=== PATIENT | male | born 1980 | race Caucasian/White ===

== ENCOUNTER 2017-01-31 00:38 | Inpatient (IN) | payer OTHER ==
[2017-01-31] VITALS (57 sets, daily range): BP systolic 76–151; BP diastolic 41–131
[~2017-01-31] VITALS: Ht 193 cm; Wt 204.7 kg
--- NOTE | ~2017-01-31 | 2DMMODE ---
[address] [address] 2 D/M-MODE ECHOCARDIOGRAM Name: CHRISTOPHER MANZANO Room #: 242-P ADM IN M.R.#: [id number] Admission: 01/31/17 Attend Phys: Esther Jaramillo Discharge: Date of : 78 Date of Service: 01/31/17 1140 Report #: [id number] THIS REPORT FOR: //name// APPROVED REPORT Study performed: 01/31/2017 09:46:19 EXAM: Comprehensive 2D, Doppler, and color-flow Echocardiogram Patient Location: Bedside Room #: 242 Blood Pressure: 105/62 mmHg HR: 49 bpm Other Information Study Quality: Technically Limited Indications Atrial Fibrillation Cardiomyopathy Chest Pain Echo Enhancing Agent Indication: Endocardial border delineation Agent/Amount Used: Definity 2 cc Comments: Very limited images were obtained to evaluate left ventricular function. Left Ventricle The left ventricle is normal size. There is severe global hypokinesis of the left ventricle. There is normal left ventricular wall thickness. Left ventricular ejection fraction is severely decreased. LVEF is 30%. Diastolic function was not assessed. Right Ventricle Right ventricle is not well visualized. Atria Left atrium is not well visualized. Right atrium is not well visualized. Aortic Valve [address] [address] 2 D/M-MODE ECHOCARDIOGRAM Name: CHRISTOPHER MANZANO Room #: 242-P ADM IN M.R.#: [id number] Admission: 01/31/17 Attend Phys: Esther Jaramillo Discharge: Date of : 78 Date of Service: 01/31/17 1140 Report #: [id number] The aortic valve is not well visualized. Mitral Valve Mitral valve is not well visualized. Tricuspid Valve Tricuspid valve is not well visualized. <Conclusion> The left ventricle is normal size. There is severe global hypokinesis of the left ventricle. LVEF is 30%. Left ventricular ejection fraction is severely decreased. <ELECTRONICALLY SIGNED> By: Angel Rodriguez MD 01/31/17 1140 1140 1140 Angel Rodriguez MD /INF
--- NOTE | ~2017-01-31 | CATHLAB ---
[facility] [place] [address] INVASIVE PROCEDURE REPORT Name: MANZANOCHRISTOPHER Room #: 218-P ADM IN M.R.#: [id number] Admission: 01/31/17 Attend Phys: Jesus Velásquez Discharge: Date of : 78 Date of Service: 02/03/17 1552 Report #: [id number] THIS REPORT FOR: //name// CC: Pramod Mueller [facility] physician/PCP Haider Knight DATE OF SERVICE: 02/03/2017 INDICATION: Ventricular tachycardia/cardiomyopathy. Full risks, benefits, and alternatives of cardiac catheterization were explained to the patient. All questions were answered. Consent was obtained. A Barbeau test was performed on the right radial artery. The right wrist area was prepped and draped in a sterile manner. Lidocaine was given subcutaneously. A 5-Kiswahili sheath was inserted into the right radial artery via modified Seldinger technique. Nitroglycerin and verapamil was injected through the sheath. A 5000 units of heparin was given through peripheral IV. CORONARY ANATOMY: The left main is a large caliber vessel, with no flow-limiting lesions. The LAD is a fznxylez-tp-faxdz size caliber vessel, traveling down the anterior wall and wrapping around the apex. There were no flow-limiting lesions in the LAD. There may be some minimal luminal irregularities in the mid LAD. The first diagonal artery is a ewoaivrj-da-nnkwd size caliber vessel, supplying several branches as it travels down the anterior lateral wall. There were no flow-limiting lesions in the diagonal artery. The left circumflex artery is a rxwhwkcj-ef-qiqiy size caliber vessel, dominant, as it supplies the distal PDA. There were no flow-limiting lesions in the left circumflex artery. The RCA is a small, nondominant vessel with no flow-limiting lesions. A left ventriculogram was not performed as the procedure was done in the EP lab. After the procedure, the sheath was removed and a Vasc band was applied for hemostasis. IMPRESSION: 1. Left dominant system with no flow-limiting lesions. [facility] [address] [place] [address] INVASIVE PROCEDURE REPORT Name: CHRISTOPHER MANZANO Room #: 218-P ADM IN M.R.#: [id number] Admission: 01/31/17 Attend Phys: Jesus Velásquez Discharge: Date of : 78 Date of Service: 02/03/17 1552 Report #: [id number] 2. Minimal luminal irregularities noted in the mid LAD. 3. Recommend medical therapy. <ELECTRONICALLY SIGNED> By: Nnamdi Armando MD 02/04/17 0722 1552 0139 Nnamdi Armando MD /nt
--- NOTE | ~2017-01-31 | P ---
[facility] [place] [place] [address] PROCEDURE REPORT Name: CHRISTOPHER MANZANO Room #: 218-P [facility] IN M.R.#: [id number] Admission: 01/31/17 Attend Phys: Haider Knight MD Discharge: 02/05/17 Date of : 78 Report #: [id number] THIS REPORT FOR: //name// CC: Pramod Mueller [facility] physician/PCP Haider Knight ICD IMPLANTATION DATE OF PROCEDURE: 02/03/2017. PREOPERATIVE DIAGNOSES: 1. Sustained VT, status post cardiac resuscitation. 2. Nonischemic cardiomyopathy. 3. Atrial fibrillation. POSTOPERATIVE DIAGNOSES: 1. Sustained VT status post cardiac resuscitation. 2. Nonischemic cardiomyopathy. 3. Atrial fibrillation. BRIEF HISTORY: The patient is a 36-year-old with a known history of a nonischemic cardiomyopathy, EF of 30%, who presented to the hospital after palpitations, near syncope with an episode of sustained VT, status post cardiac resuscitation by EMS. Cardiac catheterization prior to the device shows nonobstructive coronary artery disease and his most recent echocardiogram shows an EF of 30%. He is here for ICD implantation for secondary prevention of sudden cardiac . ANESTHESIA: The patient underwent MAC anesthesia with no anesthesia related complications. Of note, the patient has severe morbid obesity and difficult airway issues, but tolerated the procedure well. DESCRIPTION OF PROCEDURE: The patient underwent informed consent. We discussed the details of the procedure including the risks, which include but not limited to bleeding, infection, vascular damage, cardiac perforation, pneumothorax. He understood these risks and is willing to proceed. As such, the patient was brought to the EP laboratory in a fasting and sedated state and prepped and draped in a sterile fashion. Prior to the device implantation, he underwent a coronary angiogram via right radial approach by Dr. Armando, which showed nonobstructive coronary artery disease. He was then prepped and draped in a sterile fashion, received IV vancomycin for antibiotic prophylaxis and due to his morbid obesity and large stature, a venogram was performed to determine the patency and location of the axillary vein. Next, I injected 30 mL of lidocaine below the level of the left clavicle as anesthesia did not want to overly sedate the patient given his size. Incision was made and a pocket was then made. Of note, he had a very deep pocket. Next, I obtained access to the left axillary [address] [address] PROCEDURE REPORT Name: CHRISTOPHER MANZANO Room #: 218-P [facility] IN M.R.#: [id number] Admission: 01/31/17 Attend Phys: Haider Knight MD Discharge: 02/05/17 Date of : 78 Report #: [id number] vein using the extrathoracic approach with a sheath positioned using the modified Seldinger technique. Next, a RV lead was placed into the right ventricular apex. We utilized a RV lead with further spacing between the RV and SVC coils. The lead was positioned in the right ventricular apex with adequate pacing and sensing thresholds. I took care to leave a significant amount of slack due to his size. I then sutured the lead, 3 times of the prepectoral fascia to ensure he would not dislodge this lead. I then connected the lead to the device. A tug test was performed and the pocket was irrigated with vancomycin solution. I did suture the lead down to the posterior wall of the pocket given his large size. I then closed the pocket in 3 layers using 2-0 for the deep layer, 3-0 for the middle layer and 4-0 for the subcuticular layer. I then placed Steri-Strips on the pocket. The patient awoke neurologically and hemodynamically intact with no complications and no significant bleeding. The implanted device was a [employer] model #[id number], serial #[id number]. His RV lead was a [employer], 65 cm, serial #[id number], serial # [id number]. The lead demonstrated a R-wave of 9.7 millivolts, pacing impedance of 600 ohms and a pacing threshold of 0.5 volts at 0.5 milliseconds. His device was programmed to the VVI 40 mode. His VT zone was set at 200 beats per minute with 3 rounds of ATP followed by max output shocks. The VF zone was set at 240 beats per minute with ATP while charging followed by max output shocks. I decided on higher than usual, VT cutoff zone due to episodes of atrial fibrillation into the 170s while here in the hospital. CONCLUSIONS: 1. Successful single chamber ICD implantation. 2. Satisfactory right ventricular pacing and sensing thresholds. <ELECTRONICALLY SIGNED> By: Alexandro Santos MD 02/07/17 1524 1712 0620 Alexandro Santos MD /nt
--- NOTE | ~2017-01-31 | EKG ---
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 : 1980 Requested By: Annika Hernandez Order Number: [id number] MD: Pramod Mueller Measurements Intervals [place] Rate: 77 P: ID: QRS: 21 QRSD: 98 T: 33 QT: 425 QTc: 482 Interpretive Statements Atrial fibrillation Nonspecific ST segment abnormality Borderline prolonged QT interval Compared to ECG 01/31/2017 00:43:11 ST segment abnormality is less pronounced Electronically Signed On 02-02-2017 14:46:56 CDT by Pramod Mueller [email or web address] <ELECTRONICALLY SIGNED> By: Pramod Mueller MD, [facility] 02/02/17 1446 4 4 Pramod Mueller MD, [facility] /EPI
--- NOTE | ~2017-01-31 | EKG ---
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 01/31/17 0825 Pramod Mueller MD, [facility] /EPI
[~2017-01-31 00:38] MED LIST: ADVAIR HFA 45MC1 AER IH; ALDACTONE25 MG PO; ASMANEX0.135 G1; COREG PO; COUMADIN 10MG T10 M1 PO; DEMADEX20 MG PO; DIGOXIN250 MCG PO; DIOVAN; DIOVAN PO; DIOVAN160 MG PO; ELIQUIS5 MG PO; FUROSEMIDE 40 M40 M1 PO; LASIX 40 MG TAB40 M2 PO; LISINOPRIL20 MG PO; LOPRESSOR100 M1 PO; LOVENOX SQ; MAG DELAY64 MG PO; PACERONE 200 M200 MG PO; POTASSIUM20 PO; PROVENTIL
[2017-01-31 00:59] LABS: ABSOLUTE NEUTROPHILS 8.2 thou/uL (1.4-8.2); BASOPHILS 0.8 % (0.0-2.0); EOSINOPHILS 1.3 % (0.0-3.0); HEMATOCRIT 49.9 % (42.0-52.0); HEMOGLOBIN 16.3 gm/dL (14.0-18.0); LYMPHOCYTES 30.1 % (24.0-44.0); MCH 27.4 pg (26.0-34.0); MCHC 32.7 g/dL (28.0-37.0); MCV 83.7 fL (80.0-100.0); MONOCYTES 6.9 % (1.0-8.0); PLATELET COUNT 252 thou/uL (150-400); POLYS 60.9 % (36.0-66.0); RBC 5.96 mil/uL (4.50-6.00); RDW 17.4 % (10.5-14.5); WBC 13.4 thou/uL (4.0-11.0)
[2017-01-31 01:08] LABS: MANUAL DIFF NO
[2017-01-31 01:09] LABS: ANION GAP 15 mmol/L (7-16); BUN 27 mg/dL (7-18); CALCIUM 9.4 mg/dL (8.5-10.1); CHLORIDE 105 mmol/L (98-107); CO2 21 mmol/L (21-32); CREATININE 1.7 mg/dL (0.7-1.3); GLUCOSE 165 mg/dL (74-106); POTASSIUM 3.7 mmol/L (3.5-5.1); SODIUM 141 mmol/L (136-145)
[2017-01-31 01:26] LABS: ALBUMIN 3.8 g/dL (3.4-5.0); ALKALINE PHOSPHATASE 78 U/L (46-116); APTT 26.6 Seconds (24.5-32.8); CK-MB MASS 1.6 ng/mL (<0.5-3.6); INR 1.2; MAGNESIUM 1.5 mg/dL (1.8-2.4); NT-PRO BRAIN NAT PEPTIDE 752 pg/mL (<300); PROTIME 12.2 Seconds (9.3-11.4); SGOT 28 U/L (15-37); SGPT 42 U/L (30-65); TOTAL BILIRUBIN 0.4 mg/dL (<0.1-1.0); TOTAL PROTEIN 8.6 g/dL (6.4-8.2); TROPONIN-I < 0.04 ng/mL (<0.04-0.07)
[2017-01-31 08:43] LABS: HEMATOCRIT 45.1 % (42.0-52.0); HEMOGLOBIN 14.9 gm/dL (14.0-18.0); MCH 27.4 pg (26.0-34.0); MCHC 33.1 g/dL (28.0-37.0); MCV 82.7 fL (80.0-100.0); RBC 5.45 mil/uL (4.50-6.00); RDW 17.4 % (10.5-14.5); WBC 12.6 thou/uL (4.0-11.0)
[2017-01-31 08:53] LABS: CALCIUM 8.6 mg/dL (8.5-10.1); CREATININE 1.5 mg/dL (0.7-1.3); MAGNESIUM 1.9 mg/dL (1.8-2.4)
[2017-01-31 09:02] LABS: DIGOXIN 0.8 ng/mL (0.9-2.0)
[2017-01-31 09:03] LABS: POTASSIUM 5.1 mmol/L (3.5-5.1)
[2017-01-31 09:04] LABS: TROPONIN-I 1.81 ng/mL (<0.04-0.07)
[2017-01-31 09:28] LABS: CHOLESTEROL 152 mg/dL (<200); HDL CHOLESTEROL 40 mg/dL (>40); LDL CHOLESTEROL 86 mg/dL (<100); TC:HDL 3.8 Ratio (Not establshd); TRIGLYCERIDE 130 mg/dL (<150); VLDL 26 mg/dL (<40)
[2017-01-31 11:11] LABS: ABG SAMPLE TYPE ARTERIAL; BE(vivo) -4.9 mmol/L (-2 to +3); HCO3 20.4 mmol/L (22.0-26.0); O2(CT) 20.9 mL/dL (15.0-23.0); O2Hb 94.6 % (92.0-98.0); PCO2 39.2 mmHg (35.0-45.0); pH 7.335 (7.360-7.450); sO2 95.3 % (92.0-98.0); tCO2 21.6 mmol/L (24.0-30.0)
[2017-01-31 11:12] LABS: FIO2 21 %; STICK SITE R.BRACHIAL
[2017-02-01] VITALS (26 sets, daily range): BP systolic 107–178; BP diastolic 63–168
[2017-02-01 03:54] LABS: ABSOLUTE NEUTROPHILS 8.3 thou/uL (1.4-8.2); BASOPHILS 0.7 % (0.0-2.0); EOSINOPHILS 1.4 % (0.0-3.0); HEMATOCRIT 44.2 % (42.0-52.0); HEMOGLOBIN 14.3 gm/dL (14.0-18.0); LYMPHOCYTES 18.3 % (24.0-44.0); MCH 27.1 pg (26.0-34.0); MCHC 32.3 g/dL (28.0-37.0); MCV 83.8 fL (80.0-100.0); MONOCYTES 9.1 % (1.0-8.0); PLATELET COUNT 172 thou/uL (150-400); POLYS 70.5 % (36.0-66.0); RBC 5.28 mil/uL (4.50-6.00); RDW 17.7 % (10.5-14.5); WBC 11.8 thou/uL (4.0-11.0)
[2017-02-01 03:57] LABS: MANUAL DIFF NO
[2017-02-01 04:06] LABS: GLYCOHEMOGLOBIN (HGB A1C) 5.7 % (4.8-5.6)
[2017-02-01 04:15] LABS: ALBUMIN 3.1 g/dL (3.4-5.0); CALCIUM 8.2 mg/dL (8.5-10.1); MAGNESIUM 1.5 mg/dL (1.8-2.4); POTASSIUM 4.2 mmol/L (3.5-5.1); TOTAL BILIRUBIN 0.7 mg/dL (<0.1-1.0); TOTAL PROTEIN 7.1 g/dL (6.4-8.2); TROPONIN-I 0.57 ng/mL (<0.04-0.07)
[2017-02-02] VITALS (19 sets, daily range): BP systolic 96–137; BP diastolic 56–101
[2017-02-02 01:39] LABS: URINE BILIRUBIN NEGATIVE (Negative); URINE BLOOD 1+ (Negative); URINE COLOR YELLOW; URINE GLUCOSE-RANDOM* NEGATIVE (Negative); URINE KETONES NEGATIVE (Negative); URINE NITRITE NEGATIVE (Negative); URINE PROTEIN (DIPSTICK) NEGATIVE (Negative); URINE SPECIFIC GRAVITY 1.015 (1.003-1.035); URINE UROBILINOGEN 0.2 E.U./dl (0.2-1.0)
[2017-02-02 04:05] LABS: BACTERIA None Seen /HPF (None Seen); CASTS None Seen /LPF (None Seen); SQUAMOUS None Seen /LPF (0-3); URINE RBC 3-10 Few /HPF (0-2); URINE WBC 0-5 Rare /HPF (0-5)
[2017-02-03 04:52] VITALS: BP 117/56
[2017-02-03 07:05] VITALS: BP 113/50
[2017-02-03 07:26] LABS: HEMATOCRIT 39.5 % (42.0-52.0); HEMOGLOBIN 13.2 gm/dL (14.0-18.0); MCH 27.3 pg (26.0-34.0); MCHC 33.4 g/dL (28.0-37.0); MCV 81.5 fL (80.0-100.0); RBC 4.84 mil/uL (4.50-6.00); RDW 17.7 % (10.5-14.5); WBC 11.4 thou/uL (4.0-11.0)
[2017-02-03 07:34] LABS: CREATININE 0.8 mg/dL (0.7-1.3); POTASSIUM 4.1 mmol/L (3.5-5.1)
[2017-02-03 10:55] VITALS: BP 96/60
[2017-02-03 18:00] VITALS: BP 158/96
[2017-02-04 04:22] LABS: CALCIUM 8.4 mg/dL (8.5-10.1); CREATININE 0.9 mg/dL (0.7-1.3); MAGNESIUM 1.7 mg/dL (1.8-2.4)
[2017-02-04 04:43] LABS: HEMATOCRIT 40.9 % (42.0-52.0); HEMOGLOBIN 13.3 gm/dL (14.0-18.0); MCH 27.2 pg (26.0-34.0); MCHC 32.5 g/dL (28.0-37.0); MCV 83.7 fL (80.0-100.0); PLATELET COUNT 169 thou/uL (150-400); RBC 4.89 mil/uL (4.50-6.00); RDW 17.8 % (10.5-14.5); WBC 10.4 thou/uL (4.0-11.0)
[2017-02-04 04:55] LABS: MANUAL DIFF YES
[2017-02-04 05:41] VITALS: BP 143/93
[2017-02-04 07:10] VITALS: BP 135/88
[2017-02-04 07:23] LABS: ABSOLUTE NEUTROPHILS 7.3 thou/uL (1.4-8.2); ANISOCYTOSIS SLIGHT; MICROCYTES SLIGHT; POLYCHROMASIA SLIGHT; TOTAL CELL COUNT 100
[2017-02-04 10:42] LABS: URIC ACID* 6.3 mg/dL (2.6-7.2)
[2017-02-04 10:57] VITALS: BP 152/76
[2017-02-04 16:12] VITALS: BP 142/80
[2017-02-04 20:22] VITALS: BP 148/88
[2017-02-04 21:00] VITALS: BP 158/96
[2017-02-05 04:21] VITALS: BP 139/66
[2017-02-05 07:15] VITALS: BP 148/84
[2017-02-05 07:20] VITALS: BP 148/84
[2017-02-05] MEDS ORDERED: ELIQUIS5 MG PO (08:43)
[2017-02-05] MEDS ORDERED: MAGNESIUM OXID400 MG PO (08:43)
[2017-02-05] MEDS ORDERED: QUINU10 PD PO (08:43)
[2017-02-05] MEDS ORDERED: LOPRESSOR100 M1 PO (08:43)
[2017-02-05] MEDS ORDERED: HYDROCODON-ACE1 EAC7 PO (08:45)
[2017-02-05] MEDS ORDERED: POTASSIUM20 PO (08:45)
[2017-02-05] MEDS ORDERED: COLCHICINE0.6 M1 PO (10:47)
[2017-02-05] MEDS ORDERED: PREDNISONE 10 M10 M1 PO (10:47)
[2017-02-05 11:20] VITALS: BP 145/89
[2017-02-05 11:30] VITALS: BP 148/84
== END 2017-02-05 17:42 | disposition home or self-care (01) | DRG 259 ==
LOC: ER 00:38 → ICU 01:43 → EROBS 01:43 → 2N 01:43 → ICU 03:45 → 2N 02-02 18:39
PROVIDERS: Emergency Medicine; Hospitalist; Internal Medicine; Internal Medicine Cardiovascular Disease; Nurse Practitioner; Nurse Practitioner Gerontology; Physician Assistant
PROC: 02HV33Z Insertion of Infusion Device into Superior Vena Cava, Percutaneous Approach (ICD-10-PCS; 2017-01-31)
PROC: B5181ZA Fluoroscopy of Superior Vena Cava using Low Osmolar Contrast, Guidance (ICD-10-PCS; 2017-01-31)
PROC: 0JH60PZ Insertion of Cardiac Rhythm Related Device into Chest Subcutaneous Tissue and Fascia, Open Approach (ICD-10-PCS; principal; 2017-02-03)
PROC: B2111ZZ Fluoroscopy of Multiple Coronary Arteries using Low Osmolar Contrast (ICD-10-PCS; 2017-02-03)
PROC: 4A023N7 Measurement of Cardiac Sampling and Pressure, Left Heart, Percutaneous Approach (ICD-10-PCS; 2017-02-03)
DX: I47.2 Ventricular tachycardia (principal); N17.9 Acute kidney failure, unspecified; I42.9 Cardiomyopathy, unspecified; I42.8 Other cardiomyopathies; Z68.43 Body mass index [BMI] 50.0-59.9, adult; I95.9 Hypotension, unspecified; I48.2 Chronic atrial fibrillation; G47.33 Obstructive sleep apnea (adult) (pediatric); E83.42 Hypomagnesemia; I11.0 Hypertensive heart disease with heart failure; I50.9 Heart failure, unspecified; E66.9 Obesity, unspecified; M10.9 Gout, unspecified; E86.0 Dehydration; Z87.442 Personal history of urinary calculi; Z88.0 Allergy status to penicillin; Z87.891 Personal history of nicotine dependence; Z79.82 Long term (current) use of aspirin; Z79.899 Other long term (current) drug therapy

== ENCOUNTER → 2018-10-08 | Outpatient (CLI) | payer OTHER ==
[~2018-10-08] MED LIST changes: +COLCHICINE0.6 M1 PO; +HYDROCODON-ACE1 EAC7 PO; +MAGNESIUM OXID400 MG PO; +PREDNISONE 10 M10 M1 PO; +QUINU10 PD PO
--- NOTE | ~2018-10-08 | 2DMMODE ---
[facility] [place] [place] [address] 2 D/M-MODE ECHOCARDIOGRAM Name: CHRISTOPHER MANZANO Room #: [facility]#: [id number] Admission: 10/08/18 Attend Phys: Alexandro Santos Discharge: Date of : 78 Date of Service: 10/08/18 1614 Report #: [id number] THIS REPORT FOR: //name// APPROVED REPORT Study performed: 10/08/2018 15:08:49 EXAM: Comprehensive 2D, Doppler, and color-flow Echocardiogram Patient Location: Out-Patient Room #: Echo lab 2 Status: routine BSA: 3.19 HR: 71 bpm BP: 120/86 mmHg Rhythm: Atrial Fibrillation Other Information Study Quality: Fair Indications ICD: Atrial Fibrillation Cardiomyopathy Hypertension/HDD Morbid obesity Echo Enhancing Agent Indication: Endocardial border delineation Agent(s) / Amount(s) Used: Optison 4 cc 2D Dimensions RVDd: 50.58 mm IVSd: 14.26 (7-11mm) LVOT Diam: 28.03 (18-24mm) LVDd: 73.70 mm PWd: 14.08 (7-11mm) LVDs: 57.26 (25-40mm) Aortic Root: 32.80 mm Volumes Left Atrial Volume (Systole) Single Plane 4CH: 55.13 mL Single Plane 2CH: 122.48 mL LA ESV Index: 38.00 mL/m2 Aortic Valve AoV Peak Fei.: 1.37 m/s [facility] [email or web address] [address] 2 D/M-MODE ECHOCARDIOGRAM Name: CHRISTOPHER MANZANO Karl Room #: [facility]#: [id number] Admission: 10/08/18 Attend Phys: [facility] Discharge: Date of : 78 Date of Service: 10/08/18 1614 Report #: [id number] AO Peak Gr.: 7.51 mmHg LVOT Max P.76 mmHg LVOT Max V: 0.83 m/s CHAITANYA Vmax: 3.74 cm2 Pulmonary Valve PV Peak Fei.: 1.08 m/s PV Peak Gr.: 4.70 mmHg Tricuspid Valve TR Peak Fei.: 2.38 m/s TR Peak Gr.: 22.67 mmHg PA Pressure: 23.00 mmHg Left Ventricle Left ventricle is dilated. There is global hypokinesis of the left ventricle. Moderate concentric left ventricular hypertrophy. Left ventricular ejection fraction is moderately decreased. LVEF is 35- 40%. This study is not technically sufficient to allow evaluation of the LV diastolic function due to atrial fibrillation. Right Ventricle Right ventricle is dilated. Right ventricle is hypokinetic.mild Atria Left atrium is dilated. Right atrium is dilated. Aortic Valve The aortic valve is not well visualized. No aortic regurgitation is present. There is no aortic valvular stenosis. Mitral Valve The mitral valve is normal in structure. Trace mitral regurgitation. No evidence of mitral valve stenosis. Tricuspid Valve The tricuspid valve is normal in structure. There is trace tricuspid regurgitation. Estimated PAP 23 mmHg plus the right atrial pressure. Pulmonic Valve The pulmonary valve is normal in structure. There is no pulmonic valvular regurgitation. Great Vessels The aortic root is normal in size. The inferior vena cava is not well visualized. [facility] [place] [address] [place] [address] 2 D/M-MODE ECHOCARDIOGRAM Name: MANZANOCHRISTOPHER Karl [id number] Admission: 10/08/18 Attend Phys: [facility]ro [facility] Discharge: Date of : 78 Date of Service: 10/08/18 1614 Report #: [id number] Pericardium There is no pericardial effusion. <Conclusion> Left ventricle is dilated. Moderate concentric left ventricular hypertrophy. LVEF is 35- 40%. This study is not technically sufficient to allow evaluation of the LV diastolic function due to atrial fibrillation. Right ventricle is dilated. Right ventricle is hypokinetic.mild Left atrium is dilated. Right atrium is dilated. The aortic valve is not well visualized. Trace mitral regurgitation. There is trace tricuspid regurgitation. Estimated PAP 23 mmHg plus the right atrial pressure. The aortic root is normal in size. There is no pericardial effusion. <ELECTRONICALLY SIGNED> By: Leo Hampton MD, FAC 10/08/18 161 13 13 Leo Hampton MD, [facility] /INF
== END ==
LOC: CV 10:59
DX: I48.91 Unspecified atrial fibrillation (principal); I11.0 Hypertensive heart disease with heart failure; I42.8 Other cardiomyopathies; E66.01 Morbid (severe) obesity due to excess calories; I50.9 Heart failure, unspecified

== ENCOUNTER → 2019-10-21 | Outpatient (CLI) | payer OTHER ==
[~2019-10-21] MED LIST changes: +PREDNISONE 20 M20 MG PO; +PROAIR HFA8.5 GM INH
== END ==
LOC: SJCVC 15:23
DX: I21.9 Acute myocardial infarction, unspecified (principal); I48.21 Permanent atrial fibrillation; I10 Essential (primary) hypertension; E66.01 Morbid (severe) obesity due to excess calories; Z72.0 Tobacco use; Z95.810 Presence of automatic (implantable) cardiac defibrillator; Z79.899 Other long term (current) drug therapy

== ENCOUNTER 2019-12-01 07:15 | Emergency (ER) | payer OTHER ==
[~2019-12-01] VITALS: Ht 195.6 cm; Wt 181.4 kg
[~2019-12-01 07:15] MED LIST changes: -PREDNISONE 20 M20 MG PO; -PROAIR HFA8.5 GM INH
--- NOTE | 2019-12-01 08:25 | EKG ---
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1980 Requested By: Yunior Nascimento Order Number: [id number] MD: Alexandro Santos Measurements Intervals [place] Rate: 61 P: ME: QRS: 47 QRSD: 109 T: 39 QT: 434 QTc: 438 Interpretive Statements Atrial fibrillation Anterior infarct, old Compared to ECG 01/31/2017 09:15:39 Myocardial infarct finding now present ST (T wave) deviation no longer present Electronically Signed On 12-01-2019 8:24:52 [employer] by Alexandro Santos [email or web address] <ELECTRONICALLY SIGNED> By: Alexandro Santos MD 12/01/1924 Alexandro Santos MD /ASHISH
[2019-12-01 08:32] LABS: HEMATOCRIT 51.1 % (42.0-52.0); HEMOGLOBIN 16.4 gm/dL (14.0-18.0); MCH 28.1 pg (26.0-34.0); MCHC 32.1 g/dL (28.0-37.0); MCV 87.6 fL (80.0-100.0); PLATELET COUNT 167 thou/uL (150-400); RBC 5.84 mil/uL (4.50-6.00); RDW 16.9 % (10.5-14.5); WBC 6.9 thou/uL (4.0-11.0)
[2019-12-01 08:41] LABS: ANION GAP 5 mmol/L (7-16); BUN 14 mg/dL (7-18); CHLORIDE 102 mmol/L (98-107); CO2 32 mmol/L (21-32); CREATININE 0.8 mg/dL (0.7-1.3); GLUCOSE 101 mg/dL (74-106); POTASSIUM 4.1 mmol/L (3.5-5.1); SODIUM 139 mmol/L (136-145)
[2019-12-01 08:49] LABS: TROPONIN-I <0.06 ng/mL (<0.06)
[2019-12-01 10:03] LABS: ABSOLUTE NEUTROPHILS 4.1 thou/uL (1.4-8.2); PLATELET ESTIMATE NORMAL
[2019-12-01] MEDS ORDERED: PROAIR HFA8.5 GM INH (15:05)
[2019-12-01] MEDS ORDERED: PREDNISONE 20 M20 MG PO (15:05)
[2019-12-01 16:08] VITALS: BP 110/81
== END 2019-12-01 16:08 | disposition home or self-care (01) ==
LOC: ER 07:15
PROVIDERS: Emergency Medicine
DX: J20.9 Acute bronchitis, unspecified (principal); I11.0 Hypertensive heart disease with heart failure; I50.9 Heart failure, unspecified; I48.91 Unspecified atrial fibrillation; E66.09 Other obesity due to excess calories; Z88.0 Allergy status to penicillin; Z87.891 Personal history of nicotine dependence; Z68.42 Body mass index [BMI] 45.0-49.9, adult

== ENCOUNTER 2020-07-06 17:52 | Inpatient (IN) | payer OTHER ==
[~2020-07-06] VITALS: Ht 198.1 cm; Wt 181.4 kg
--- NOTE | ~2020-07-06 | HC ---
[place] [address] CONSULTATION Name: CHRISTOPHER MANZANO Room #: 456-P [facility] IN ..#: [id number] Admission: 07/06/20 Attend Phys: Jenniffer Dumont MD Discharge: 07/10/20 Date of : 78 Report #: [id number] THIS REPORT FOR: cc: KHANG - Demi family physician/PCP KHANG - No family physician/PCP Phu Bernardo MD ~ CC: Jenniffer QUIÑONEZ physician/PCP DATE OF SERVICE: 07/10/2020 HISTORY OF PRESENT ILLNESS: The patient is a 40-year-old white male who was admitted to on 07/06/2020 with a complicated history of hypertension, CHF, chronic atrial fibrillation and pulmonary embolism, on Eliquis; morbid obesity, prior hypoxic respiratory failure and pneumonia, who was admitted this time with bilateral lower extremity knee pain with swelling x 2 weeks. He has had difficulty ambulating. He was seen by Orthopedics. He does have elevated uric acid, elevated sed rate, elevated C-reactive protein. He underwent a left knee joint aspiration and an attempted right knee joint aspiration. They are apparently to attempt again later today. He was noted to have bilateral knee effusions. He is on prednisone and colchicine. He has had significant decline in his functional independence. We are seeing him in rehabilitation medicine consultation. PAST MEDICAL HISTORY: V-tach on 01/30/2017 status post AICD, he has got a history of cardiac catheterization 02/03/2017, history of hypertension, gout, lithotripsy for kidney stones 2008, CHF, atrial fibrillation, obstructive sleep apnea, wears CPAP, hypomagnesemia, pulmonary embolism, on Eliquis, pneumonia. MEDICATIONS: Please see the full medication listing. ALLERGIES: PENICILLIN. HABITS: Former smoker, quit greater than a year ago. History of occasional alcohol usage. SOCIAL HISTORY: Lives in a house extended family is there including his fjhhkl-ph-qwf and 6 children. There are 3 steps in. Gait was premorbidly without aids. There is a brother who lives down the street. REVIEW OF SYSTEMS: Complains of bilateral knee pain. Notes he has had gout in the past, although it affected his feet. No chest pain, shortness of breath, abdominal discomfort at this time. PHYSICAL EXAMINATION: GENERAL: A 40-year-old obese white male, tall in no obvious distress. He is [address] [place] [address] CONSULTATION Name: CHRISTOPHER MANZANO Room #: 456-P [facility] IN M.R.#: [id number] Admission: 07/06/20 Attend Phys: Jenniffer Dumont MD Discharge: 07/10/20 Date of : 78 Report #: [id number] feet 6 inches, 400 pounds. He is alert, pleasant, oriented. HEENT: Facies appeared symmetric. EXTREMITIES: Functional range of motion of both upper extremities. Strength is a grade 4/5. DTRs are trace to 1. ABDOMEN: He does have significant obesity with large pendulous abdomen. Lower extremities, bilateral knees reveal some tenderness. No focal calf swelling. Strength of the lower extremities is probably at least a grade 3+ to 4-/5. He has some discomfort with attempted movement. He is min assist with sit to stand. He was min assist to try to take 2 to 3 steps with a front-wheeled walker. ASSESSMENT: A 40-year-old white male with the following problem list: 1. Bilateral inflammatory polyarthritis. 2. Bilateral knee effusions, status post left knee joint aspiration with attempted right knee joint aspiration. 3. Bilateral lower extremity weakness. 4. Functional mobility and ADL deficits. 5. Prior history of pulmonary embolism, on Eliquis. 6. History of atrial fibrillation. 7. Prior history of hypoxic respiratory failure. 8. Morbid obesity. 9. Congestive heart failure. 10. Hypertension. 11. Obstructive sleep apnea. 12. Recurrent hypomagnesemia. PLAN: Note that the right knee is to undergo another attempt at aspiration. The patient is a candidate for an acute [address] [place] [address] inpatient rehabilitation stay when medically cleared. He appears amenable. We will be glad to follow along with you regarding his rehab therapy needs. By: 1132 2158 Phu Bernardo MD /nt
[~2020-07-06 17:52] MED LIST changes: +PREDNISONE 20 M20 MG PO; +PROAIR HFA8.5 GM INH
[2020-07-06 17:53] VITALS: BP 138/93
[2020-07-06] MEDS ORDERED: CARVEDILOL25 MG PO (18:50)
[2020-07-06] MEDS ORDERED: DILTIAZEM 24HR240 M1 PO (18:51)
[2020-07-06] MEDS ORDERED: DIGOX250 MCG PO (18:51)
[2020-07-06 18:56] LABS: ABSOLUTE NEUTROPHILS 6.7 thou/uL (1.4-8.2); BASOPHILS 0.9 % (0.0-2.0); EOSINOPHILS 2.5 % (0.0-3.0); HEMATOCRIT 47.4 % (42.0-52.0); HEMOGLOBIN 15.4 gm/dL (14.0-18.0); LYMPHOCYTES 13.3 % (24.0-44.0); MCH 28.5 pg (26.0-34.0); MCHC 32.4 g/dL (28.0-37.0); PLATELET COUNT 228 thou/uL (150-400); POLYS 74.3 % (36.0-66.0); RBC 5.39 mil/uL (4.50-6.00); RDW 15.2 % (10.5-14.5)
[2020-07-06 19:04] LABS: ANION GAP 6 mmol/L (7-16); BUN 7 mg/dL (7-18); CALCIUM 8.6 mg/dL (8.5-10.1); CHLORIDE 103 mmol/L (98-107); CO2 31 mmol/L (21-32); CREATININE 0.8 mg/dL (0.7-1.3); GLUCOSE 103 mg/dL (74-106); POTASSIUM 3.9 mmol/L (3.5-5.1); SODIUM 140 mmol/L (136-145)
[2020-07-06 19:19] LABS: ALBUMIN 2.8 g/dL (3.4-5.0); MAGNESIUM 1.2 mg/dL (1.8-2.4); SGOT 18 U/L (15-37); SGPT 27 U/L (30-65); TOTAL BILIRUBIN 0.5 mg/dL (0.2-1.0); TOTAL PROTEIN 7.3 g/dL (6.4-8.2); TROPONIN-I <0.06 ng/mL (<0.06)
[2020-07-06 21:12] VITALS: BP 148/100
[2020-07-06 21:24] VITALS: BP 113/77
[2020-07-06 21:57] VITALS: BP 140/102
[2020-07-07 05:04] VITALS: BP 155/112
[2020-07-07 05:51] LABS: CALCIUM 8.7 mg/dL (8.5-10.1); CREATININE 0.9 mg/dL (0.7-1.3); MAGNESIUM 1.7 mg/dL (1.8-2.4); POTASSIUM 3.9 mmol/L (3.5-5.1)
--- NOTE | 2020-07-07 07:44 | EKG ---
[facility] [place] [address] ELECTROCARDIOGRAM REPORT Name: CHRISTOPHER MANZANO Room #: 456-P ADM IN M.R.#: [id number] Admission: 07/06/20 Attend Phys: Jenniffer Dumont MD Discharge: Date of : 78 Report #: [id number] THIS REPORT FOR: cc: KHANG - Demi family physician/PCP KHANG - Demi family physician/PCP Catrachito Palomino MD [facility] THIS REPORT FOR: //name// [facility] ED Test Date: 2020-07-06 Test Time: 18:57:05 Pat Name: CHRISTOPHER MANZANO Department: Room: [facility] 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: 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 : 1980 Requested By: [place] Apodaca Order Number: [id number] MD: Catrachito Palomino Measurements Intervals [place] Rate: 91 P: PA: QRS: -3 QRSD: 115 T: 151 QT: 385 QTc: 474 Interpretive Statements Atrial fibrillation Ventricular premature complex Nonspecific intraventricular conduction delay Anterior infarct, old Borderline repolarization abnormality Baseline wander in lead(s) II,aVR Compared to ECG 12/01/2019 07:36:28 Ventricular premature complex(es) now present Intraventricular conduction delay now present Myocardial infarct finding still present Electronically Signed On 07-07-2020 7:44:19 CDT by Catrachito Palomino [email or web address] <ELECTRONICALLY SIGNED> By: Catrachito Palomino MD, [facility] 07/07/20 0744 56 56 Catrachito Palomino MD, [facility] /EPI
--- NOTE | 2020-07-07 07:56 | NUR ---
pt admitted to room 456 with right knee joint effusion iv in rac saline locked tele applied and reading afin with rates in the 50's to 90's. oriented to room call light system and poc.
[2020-07-07 09:52] LABS: SOURCE KNEE JOINT
--- NOTE | 2020-07-07 11:52 | NUR ---
PT ADMITTED RELATED TO LEG WEAKNESS, BILATERAL KNEE PAIN, HYPOMAGNESEMIA, GOUT. CM REVEIWED CHART AND SPOKE WITH CARE TEAM. CM CALLED AND SPOKE WITH PT OVER THE PHONE THIS AM. PT APPEARED TO BE A&O X4. CM ROLE INTRODUCED. PT INDICATED HE LIVES IN A HOUSE WITH HIS MOTHER IN [place] AND 6 KIDS. PT INDICATED THERE ARE 3 STEPS TO ENTER AND A FULL FLIGHT TO BASEMENT INSIDE. PT INDICATED HE HAD NOT BEEN AMBULATING WELL PRIOR TO ADMISSION BUT THAT HE HAD BEEN INDEPEDNENT WITH ADLS. PT INDICATED NO DME, HH, OP, OR SKILLED REHAB HX. PT INDICATED NO PCP BUT THAT HE GO[facility] TO [facility] FOR CARES [facility] THE COMMUNITY. CHART INDICATED THAT PT HAS A CPAP FOR HOME USE, CM TO CONFIRM. PT INDICATED HE PLANS TO RETURN HOME [facility] MEDICALLY STABLE. CM TO FOLLOW INDICATED WITH DC PLANNING.
[2020-07-07 11:54] VITALS: BP 162/111
--- NOTE | 2020-07-07 13:50 | NUR ---
AAOX4. CALM, PLEASANT. DR. VANEGAS HERE, ASPIRATING KNEE FLUID; SENT TO LAB. HTN PERSISTS DESPITE NEW MEDICATIONS/DOSAGES. WILL CONTINUE TO FOLLOW CLOSELY.
--- NOTE | 2020-07-07 16:26 | NUR ---
CONSULT RECEIVED FOR 5N ACUTE REHAB. CONSULT BEING REVIEWED BY REHAB PHYSICIAN AT THIS TIME. WILL CONTINUE TO FOLLOW.
[2020-07-07 20:13] VITALS: BP 143/92
[2020-07-08 07:36] LABS: SOURCE SYNOVIAL
[2020-07-08 10:05] VITALS: BP 139/74
--- NOTE | 2020-07-08 11:22 | NUR ---
low purine eating plan and gout education materials given to pt
[2020-07-08 17:06] VITALS: BP 118/89
--- NOTE | 2020-07-08 17:22 | NUR ---
PT GIVEN PAIN MEDICATION PRN PER ORDER TODAY. PT WORKED WITH PT ONCE. RIGHT KNEE US GUIDED ASPIRATION ORDERED BUT NOT DONE ON WEEKENDS UNLESS STAT. PAGED JOHN GAFFNEY, SHE SAID THAT IT WAS FINE AND NOT TO CHANGE IT TO STAT. UPDATED PT.
[2020-07-08 19:36] VITALS: BP 142/57
--- NOTE | 2020-07-09 01:08 | NUR ---
VSS-AFEBRILE. LUNGS CLEAR. CPAP @ HS. C/O PAIN WITH BLE THAT IS PARTIALLY RELIEVED WITH PO PAIN MEDICATION. FALL PRECAUTIONS IN PLACE.
[2020-07-09 08:01] VITALS: BP 152/109
[2020-07-09 16:54] VITALS: BP 114/88
--- NOTE | 2020-07-09 17:37 | NUR ---
ASSUMED PT CARE THIS AM. PT VITAL SIGNS STABLE, A&OX4. PT TURNS SELF APPROPRIATELY. PAIN REPORTED IN KNEES, RESPONDED WELL TO PAIN MEDICATION GIVEN. PT USED URINAL ALL SHIFT. IV PATENT. ON TELEMETRY, PT IS A FIB. PER , PLAN OF CARE IS TO DISCHARGE TO REHAB TOMORROW. PT ABLE TO TURN INDEPENDENTLY. PT CALLS WHEN NEEDED. WILL CONTINUE TO MONITOR.
[2020-07-09 19:27] VITALS: BP 140/89
--- NOTE | 2020-07-10 04:39 | NUR ---
PT HAS SLEPT MOST OF THE NIGHT. RESPIRATIONS EVEN AND UNLABORED. HE WORE HIS CPAP WHILE SLEEPING. VOIDS INDEPENDENTLY PER URINAL. C/O BILATERAL KNEE PAIN. SCHEDULED PAIN MEDICATIONS GIVEN AT HS, WHICH HELPED DECREASE PAIN. AFIB W/ PVCS ON TELE. HR 40S-50S WHILE SLEEPING. PROGRESSING SLOWLY TOWARD POC GOALS.
[2020-07-10 05:52] VITALS: BP 126/86
[2020-07-10 07:15] VITALS: BP 131/62
[2020-07-10 10:06] LABS: BODY FLUID PROTEIN 3.7 g/dL (())
[2020-07-10] MEDS ORDERED: COZAAR 50 MG TA50 M1 PO (11:01)
[2020-07-10] MEDS ORDERED: APAP650 PO (11:01)
[2020-07-10] MEDS ORDERED: TRAMADOL 50 MG50 MG PO (11:01)
[2020-07-10] MEDS ORDERED: LIDOPATCH1 EACH TRANSDERM (11:01)
[2020-07-10] MEDS ORDERED: ALBUTEROL2.5 MG/0.5 INH (11:01)
[2020-07-10] MEDS ORDERED: PERCOCET 7.5-31 EAC1 PO (11:01)
[2020-07-10] MEDS ORDERED: COLCHICINE0.6 M1 PO (11:01)
[2020-07-10] MEDS ORDERED: PROTONIX 20 MG20 M1 PO (11:01)
[2020-07-10 16:30] LABS: SOURCE RIGHT KNEE
--- NOTE | 2020-07-10 16:38 | NUR ---
PT HAD RIGHT KNEE ASPIRATED THIS DAY. PT HAD BEEN ASSESSED FOR [facility] AND THEY CAN ACCEPT AND PT IS AWARE AND AGREEABLE. PT TO DC TO [facility] TODAY. NO OTHER CM INTERVENTION INDICATED. CASE CLOSED.
[2020-07-10 17:00] LABS: BF NUCLEATED CELLS 938 /mm3; BF RBC 65549 /mm3
[2020-07-10 17:02] LABS: TOTAL VOLUME 5 mL
[2020-07-10 17:03] LABS: CLARITY CLOUDY; COLOR REDDISH
[2020-07-10 17:26] VITALS: BP 131/97
--- NOTE | 2020-07-10 17:37 | NUR ---
ASSUMED PT CARE THIS AM. PT VITAL SIGNS STABLE, A&OX4. PT URINATED PER URINAL AND AMBULATED TO BEDSIDE COMMODE FOR BM. PT A FIB ON TELE. RIGHT KNEE WAS ASPIRATED FOR FLUID THIS PM. PT TRANSFERING TO [facility]. PT DISCHARGED, REPORT WAS GIVEN TO 5[facility], PATIENT SENT UP.
[2020-07-10 18:08] LABS: BF MACROPHAGE 18 %; BF NEUTROPHILS 50 %
--- NOTE | 2020-07-12 14:49 | HC ---
[facility] [place] [address] CONSULTATION Name: CHRISTOPHER MANZANO Room #: 456-P [facility] IN ..#: [id number] Admission: 07/06/20 Attend Phys: Jenniffer Dumont MD Discharge: 07/10/20 Date of : 78 Report #: [id number] THIS REPORT FOR: cc: KHANG - No family physician/PCP KHANG - No family physician/PCP Sally Gray MD ~ CC: Jenniffer Dumont [facility] physician/PCP DATE OF SERVICE: 07/07/2020 REASON FOR CONSULTATION: Bilateral knee pain, probable gout. HISTORY OF PRESENT ILLNESS: The patient is a 40-year-old male with a prior history of what was thought to be gout in one of his knees that resolved with medication. This was at least a few years ago. He reports 2 weeks ago noting increased pain, swelling. He reports a decreased ability to bear weight. Denies other extremity complaints. Reports both knees are painful. PAST MEDICAL HISTORY: Significant for hypertension, congestive heart failure, chronic AFib, history of a PE, obstructive sleep apnea. REVIEW OF SYSTEMS: MUSCULOSKELETAL: See HPI. Denies other complaints. NEUROLOGIC: Denies numbness or tingling. PAST SURGICAL HISTORY: None. ALLERGIES: PENICILLIN. HOME MEDICATIONS: Include quinapril, magnesium oxide, Eliquis, potassium chloride, torsemide, carvedilol, digoxin, diltiazem. SOCIAL HISTORY: Former smoker, does use alcohol. Normally ambulates without difficulty. LABORATORY DATA: Done on the date of admission showed white blood cell count 9, hemoglobin 15.4, hematocrit 47.4, platelet count 228, ESR is 31. D-dimer is 3.77. Uric acid level is elevated at 8.9. PHYSICAL EXAMINATION: GENERAL: He is a well-developed, well-nourished, moderately obese male in no acute distress. He interacts appropriately. Normal mood and affect. VITAL SIGNS: Most recent vital signs showed a temperature of 36.6, respiratory rate 16, blood pressure 155/112, pulse oximetry is 91% on room air. EXTREMITIES: Bilateral upper extremities move without difficulty. He has [facility] [address] [place] [address] CONSULTATION Name: CHRISTOPHER MANZANO Room #: 456-P [facility]#: [id number] Admission: 07/06/20 Attend Phys: Jenniffer Dumont MD Discharge: 07/10/20 Date of : 78 Report #: [id number] grossly normal strength and stability and no pain with range of motion of his bilateral upper extremities. Bilateral lower extremities show significant bilateral knee joint effusion without erythema. There is diffuse joint line tenderness. The skin is otherwise clean, dry and intact with the exception of some mild abrasions on the right distal leg and some excoriation of some skin. He has brisk capillary refill. Sensation is intact to light touch throughout. Grossly normal strength and stability. Moves his extremities without pain with the exception of the bilateral knees. RADIOGRAPHS: AP, lateral and oblique of the bilateral knees shows some mild diffuse joint space narrowing and significant joint effusion. IMPRESSION AND PLAN: Bilateral significant knee pain, most likely gout related. I discussed the diagnosis as well as treatment options. We discussed the medical treatment versus aspiration. We discussed that if I do perform an aspirate the risk to aspiration including infection and recurrence of the effusion. However, I discussed that hopefully with the medical treatment and aspiration, the effusion will not recur to the same level. Informed consent was obtained. Please see a separate note for the procedure. <ELECTRONICALLY SIGNED> By: Sally Gray MD 07/12/20 [id number] Sally Gray MD /nt
--- NOTE | 2020-07-12 14:49 | O ---
[facility] [place] [address] OPERATIVE REPORT Name: CHRISTOPHER MANZANO Room #: 456-P [facility] IN ..#: [id number] Admission: 07/06/20 Attend Phys: Jenniffer Dumont MD Discharge: 07/10/20 Date of : 78 Report #: [id number] THIS REPORT FOR: cc: KHANG - No family physician/PCP KHANG - No family physician/PCP Sally Gray MD ~ CC: Jenniffer QUIÑONEZ physician/PCP DATE OF SERVICE: 07/07/2020 PREOPERATIVE DIAGNOSES: 1. Right knee effusion, probable gout. 2. Left knee effusion, probable gout. PROCEDURE PERFORMED: 1. Right attempted knee aspiration. 2. Left knee joint aspiration. SURGEON: Sally Gray MD ANESTHESIA: Local. INDICATIONS: The patient is a 40-year-old male with bilateral knee joint effusions, probable gout. He elects for aspiration to relieve pressure and as well as for diagnostic purposes. DESCRIPTION OF PROCEDURE: The risks, benefits, alternatives and complications were discussed including but not limited to infection and return of the effusion. Informed consent was obtained under sterile conditions, 3 mL of 1% lidocaine was injected into the superolateral area of the knee where the superolateral portal would be under sterile conditions. Attention was placed to the left superior portal and the knee was entered with an 18-gauge 1-1/2 inch needle and 35 mL of serosanguineous appropriately viscous fluid was obtained. It was sent off to pathology. The wound was cleaned and dressed. Next, the right knee had previously been sterilely prepped and under sterile conditions, an 18-gauge needle was entered into the superolateral portal. Multiple attempts were made and no fluid was able to be obtained. The patient's wound was cleaned. We discussed if he is continuing to have pain in the right and he wishes for an aspiration, could consider either fluoroscopic or ultrasound-guided aspiration by Radiology later today or this weekend. I will have one of my [facility] partners see him this weekend as well. The [address] [address] OPERATIVE REPORT Name: CHRISTOPHER MANZANO Room #: 456-P [facility] IN M.R.#: [id number] Admission: 07/06/20 Attend Phys: Jenniffer Dumont MD Discharge: 07/10/20 Date of : 78 Report #: [id number] from the left was sent to microbiology. Questions were encouraged and answered to best of my ability. The patient tolerated this well. <ELECTRONICALLY SIGNED> By: Sally Gray MD 07/12/20 1449 0820 [id number] Sally Gray MD /nt
== END 2020-07-10 18:11 | DRG 554 ==
LOC: ER 17:52 → 4W 20:11 → EROBS 20:11 → 4W 21:37
PROVIDERS: Nurse Practitioner Family; Orthopaedic Surgery Hand Surgery; Physician Assistant; Physician Assistant Surgical; ADMIT Hospitalist; ATTEND Hospitalist
PROC: 0S9D3ZZ Drainage of Left Knee Joint, Percutaneous Approach (ICD-10-PCS; principal; 2020-07-07)
DX: M10.062 Idiopathic gout, left knee (principal); I48.20 Chronic atrial fibrillation, unspecified; Z68.42 Body mass index [BMI] 45.0-49.9, adult; E44.1 Mild protein-calorie malnutrition; G47.33 Obstructive sleep apnea (adult) (pediatric); I11.0 Hypertensive heart disease with heart failure; I50.9 Heart failure, unspecified; M25.561 Pain in right knee; M25.562 Pain in left knee; E83.42 Hypomagnesemia; E66.01 Morbid (severe) obesity due to excess calories; M06.4 Inflammatory polyarthropathy; M25.461 Effusion, right knee; M25.462 Effusion, left knee; Z79.01 Long term (current) use of anticoagulants; Z87.442 Personal history of urinary calculi; Z95.810 Presence of automatic (implantable) cardiac defibrillator; Z86.711 Personal history of pulmonary embolism; Z87.01 Personal history of pneumonia (recurrent); Z79.899 Other long term (current) drug therapy; Z88.0 Allergy status to penicillin; Z87.891 Personal history of nicotine dependence
CPT/HCPCS: 10045

== ENCOUNTER 2020-07-10 15:42 | Inpatient (IN) | payer OTHER ==
[~2020-07-10] VITALS: Ht 198.1 cm; Wt 210.0 kg
--- NOTE | ~2020-07-10 | H ---
[facility] [place] [address] HISTORY AND PHYSICAL Name: CHRISTOPHER MANZANO Room #: 510-P ADM IN M.R.#: [id number] Admission: 07/10/20 Attend Phys: Phu Bernardo MD Discharge: Date of : 78 Report #: [id number] THIS REPORT FOR: cc: KHANG - Demi family physician/PCP KHANG - No family physician/PCP Phu Bernardo MD ~ CC: Phu QUIÑONEZ physician/PCP DATE OF SERVICE: 07/10/2020 HISTORY AND PHYSICAL AND POST-ADMISSION PHYSICIAN EVALUATION HISTORY OF PRESENT ILLNESS: The patient is a 40-year-old white male previously seen by me in consultation. He was originally admitted to [facility] on 07/06/2020 with a complicated history of hypertension, CHF, chronic atrial fibrillation and pulmonary embolism. He was on Eliquis. He also has morbid obesity and a prior history of respiratory failure and pneumonia. He was admitted with bilateral lower extremity knee pain with swelling for 2 weeks and difficulty ambulating. He was noted to have an elevated uric acid, sed rate, and elevated C-reactive protein, and was seen by Orthopedics. He underwent a left knee aspiration and an attempted right knee aspiration, which was not successful thought to be secondary to body habitus. He was placed on colchicine and prednisone. He was treated for recurrent hypomagnesemia. He was also treated for CHF. He has the atrial fibrillation with plan to continue the Eliquis post-procedure. He has obstructive sleep apnea and a prior history of pulmonary embolism. He was noted to have significant functional mobility and ADL deficits and has been admitted for acute in-hospital inpatient rehabilitation. Please see the history and physical documentation. Please see the prior past medical history as noted as well as above. He has had a prior AICD. He has had a prior history of gout. MEDICATIONS: As noted. ALLERGIES: PENICILLIN. SOCIAL HISTORY: As noted. Lives with his iwrgus-kr-ual and there are noted to be 6 children total. Some of them apparently there are nieces and nephews. Two steps into the home, 13 inside. REVIEW OF SYSTEMS: No current complaints of chest pain, shortness of breath or abdominal discomfort. Please see the full review of systems as is documented. PHYSICAL EXAMINATION: GENERAL: Morbidly obese 40-year-old male, in no obvious distress. [address] [address] HISTORY AND PHYSICAL Name: CHRISTOPHER MANZANO Room #: 510-P [facility] IN .R.#: [id number] Admission: 07/10/20 Attend Phys: Phu Bernardo MD Discharge: Date of : 78 Report #: [id number] VITAL SIGNS: Last recorded temperature 97.3, pulse 88, respirations 20, blood pressure 138/83. Height 6 feet 6 inches, weight 463 pounds. HEENT: Appeared to be benign. CHEST: Sounded clear to auscultation. Some decreased breath sounds diffusely. CARDIOVASCULAR: Sounded regular rate and rhythm. ABDOMEN: Obese, bowel sounds positive, nontender. GENITOURINARY AND RECTAL: Deferred. EXTREMITIES: Functional range of motion of both upper extremities with strength grade 4+ to 5-/5. Lower extremities: He can lift both lower extremities antigravity. Negative Homans. Some venous stasis changes noted bilaterally in the lower extremities. No distal lower extremity edema. He is min assist coming to stand and min assist with short distance ambulation. He is utilizing a roller walker. ASSESSMENT: A 40-year-old white male with the following problem list: 1. Bilateral inflammatory polyarthritis. 2. Bilateral knee effusion, status post left knee aspiration ____. 3. Bilateral lower extremity weakness. 4. History of pulmonary embolism, on Eliquis. 5. History of ventricular tachycardia, status post an implantable cardioverter defibrillator. 6. Congestive heart failure, ejection fraction 35-40%. 7. Hypertension. 8. Obstructive sleep apnea. 9. Morbid obesity. 10. Electrolyte abnormalities. PLAN: The patient has been admitted for acute in-hospital inpatient rehabilitation. From a postadmission physician evaluation perspective, there are no relevant changes since the preadmission screening. Please see the above review of prior and current medical and functional conditions and comorbidities. Please see the patient's previous and current functional status. As far as risk of complications, the patient has multiple medical comorbidities as noted above. Initial plan of care involves the interdisciplinary acute inpatient rehabilitation program. Measurable functional goals would be for the patient to become modified independent with transfers, mobility, ADLs, so he can return back to the home setting. Prognosis is reasonably good with estimated length of stay probably at least 7-10 days. Potential barriers would include his multiple medical comorbidities and decreased functional status. The patient meets diagnostic criteria for an acute in-hospital inpatient rehabilitation stay. He meets the medical necessity criteria. We will have the [address] [address] HISTORY AND PHYSICAL Name: CHRISTOPHER MANZANO Room #: 510-P [facility] IN M.R.#: [id number] Admission: 07/10/20 Attend Phys: Phu Bernardo MD Discharge: Date of : 78 Report #: [id number] multiple technology sales consultant physicians continue to follow. He does have the tolerance for therapies and has appropriate discharge goals back to the home setting. By: [id number] Phu Bernardo MD /nt
--- NOTE | ~2020-07-10 | PLAN ---
[facility] [place] [address] REHAB UNIT PLAN OF CARE Name: CHRISTOPHER MANZANO Room #: 506-1 ADM IN M.R.#: [id number] Admission: 07/10/20 Attend Phys: Phu Bernardo MD Discharge: Date of : 78 Report #: [id number] THIS REPORT FOR: //name// CC: Phu Bernardo [facility] physician/PCP DATE OF SERVICE: 07/12/2020 PROGRESS NOTE/OVERALL PLAN OF CARE SUBJECTIVE: The patient is seen back today in followup. He is in no distress. Last recorded temperature 97.6, pulse 57, respirations 20, blood pressure 114/85. The patient is alert, pleasant. Knee pain appears to be improving. He does have the Band-Aids in place from knee aspiration. Transfers have been min assist. He has been ambulating 40 feet min assist with a front-wheeled walker. Lower body dressing is min assist. ASSESSMENT: 1. Bilateral inflammatory polyarthritis. 2. Bilateral knee effusion, status post left knee aspiration on 07/10/2020. 3. Bilateral lower extremity weakness. 4. History of pulmonary embolism, on Eliquis. 5. History of ventricular tachycardia, status post automatic implantable cardioverter-defibrillator. 6. Congestive heart failure with ejection fraction of 35-40%. 7. Hypertension. 8. Obstructive sleep apnea with home CPAP. 9. Electrolyte abnormalities. 10. Obesity. PLAN: The overall plan of care is based on the preadmission screen, post-admission physician evaluation and information garnered from therapy assessments. 1. Estimated length of stay is probably about 8 days with plan at this point for discharge on next , 07/20/2019. 2. Medical prognosis is reasonably good. 3. Anticipated interventions includes the interdisciplinary acute inpatient rehabilitation program. 4. Anticipated functional outcomes would be for the patient to become modified independent with transfers, mobility and ADLs, so that he can hopefully return back to the home setting. 5. Discharge destination would be back to the home setting where he lives with his [id number]-akq and the children that are noted. 6. Expected therapy by discipline includes PT and OT 1-1/2 hours per day each [address] [address] REHAB UNIT PLAN OF CARE Name: CHRISTOPHER MANZANO Room #: 506-1 ADM IN [facility]#: [id number] Admission: 07/10/20 Attend Phys: Phu Bernardo MD Discharge: Date of : 78 Report #: [id number] five days a week throughout the duration of the acute inpatient rehabilitation stay. By: [id number] Phu Bernardo MD /PMT
--- NOTE | ~2020-07-10 | HC ---
[facility] [place] [address] CONSULTATION Name: CHRISTOPHER MANZANO Room #: 506-1 ADM IN .R.#: [id number] Admission: 07/10/20 Attend Phys: Phu Bernardo MD Discharge: Date of : 78 Report #: [id number] THIS REPORT FOR: cc: KHANG Simms family physician/PCP KHANG - Demi family physician/PCP Jus Loza PhD ~ CC: Phu QUIÑONEZ physician/PCP DATE OF SERVICE: 07/15/2020 NEUROBEHAVIORAL STATUS EXAM ATTENDING PHYSICIAN: Phu Bernardo MD. CUSTOMER ORDERS CLERK: Jus Loza, PhD CLINICAL PRESENTATION: The patient is a 40-year-old male admitted to [facility] originally on 07/06/2020 with a complicated history. His initial assessment included hypertension, congestive heart failure, chronic atrial fibrillation, pulmonary embolism. The patient has morbid obesity and a history of respiratory failure and pneumonia. He was admitted with bilateral lower extremity knee pain and swelling for approximately 2 weeks and difficulty ambulating. The patient had an elevated C-reactive protein, uric acid and sedimentation rate. The patient underwent a left knee aspiration and an attempted right knee aspiration. The patient was treated for recurrent hypomagnesemia and treated for a congestive heart failure. He also has obstructive sleep apnea and a history of pulmonary embolism. Significant functional mobility and activities of daily living deficits led to his admission for acute inpatient rehabilitation. Prior to this most recent admission, he was living independently with his ycyztp-jx-zjc and 6 children. The patient has 3 biological children. His abandoned the family about 3 years ago. The patient has infrequent contact with her. He is on disability. 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 He has been on disability for approximately 4 years. The patient is a high school graduate. TECHNIQUES UTILIZED: Clinical interview, review of medical records, staff consultation and behavioral observation, mini mental status exam 2 standard version, and clock drawing. EXAMINATION FINDINGS: The patient was alert and cooperative with the assessment. He accurately described events surrounding his admission. There is no evidence of aphasia. His thoughts are logical and goal oriented. There is no evidence of thought disorder. He does not report suicidal ideation or [facility] [address] [place] [address] CONSULTATION Name: CHRISTOPHER MANZANO Room #: 506-1 [facility] IN [facility]#: [id number] Admission: 07/10/20 Attend Phys: Phu Bernardo MD Discharge: Date of : 78 Report #: [id number] auditory/visual hallucinations. The patient indicates that sleep, appetite and cognition are all within normal limits. He does not report subjective anxiety or depression. He also denies prior treatment for depression. There is no reported history of alcohol or drug abuse. His performance on the MMSE 2 brief version was a score of 13/16. The patient was 3/3 for initial registration, 5/5 for orientation to time and place. He was 0/3 for immediate recall of 3 items after a brief time delay and distraction. Performance on the MMSE 2 standard version was 27/30. He was 5/5 for serial sevens, 2/2 for naming, 1/1 for repetition, 3/3 for auditory comprehension. He could read and follow single command, write a sentence and copy a simple geometric design. Clock drawing was within normal limits. The patient may be showing a subtle difficulty with immediate recall. However, he is alert and oriented. Given his history of pulmonary condition and obstructive sleep apnea along with morbid obesity, possible cognitive evaluation was suggested. However, ___ there a subtle issues with cognition, the patient does not appear to be presenting with neurocognitive disorder at this time. RECOMMENDATIONS: The patient may benefit from outpatient psychological services to assist in general Behavioral Health management. A dietary consult for nutritional planning along with the development of an exercise program for strengthening and endurance in order to improve his overall level of general health and wellbeing is suggested. Thank you very much for allowing me to provide the consultation on this patient. By: [id number] Jus Loza, PhD /nt
[~2020-07-10 15:42] MED LIST changes: +ALBUTEROL2.5 MG/0.5 INH; +APAP650 PO; +CARVEDILOL25 MG PO; +COZAAR 50 MG TA50 M1 PO; +DIGOX250 MCG PO; +DILTIAZEM 24HR240 M1 PO; +LIDOPATCH1 EACH TRANSDERM; +PERCOCET 7.5-31 EAC1 PO; +PROTONIX 20 MG20 M1 PO; +TRAMADOL 50 MG50 MG PO
--- NOTE | 2020-07-10 16:18 | NUR ---
chart review. jaci visited with erin via phone call prior to going up to acute rehab. pt has left knee asp last friday and had right knee aspiration today. he is a & o x 4, intro to weekly team meeting and dcp. he reported, live home with my 3 kids, mother in law and her 3 kids, ages from 17 to 6 years of age. independent prior to hospital. have couple steps to enter home and then 13 full flight to basement to get to my bedroom. manage own medication and drive vehicle. no rehab or hh in past, per erin. will cont following as needed for dc needs.
[2020-07-10 18:40] VITALS: BP 141/79
--- NOTE | 2020-07-10 19:27 | NUR ---
ASSUMED CARE OF AT 1830. [age] YE[age] OLD MALE ADMITTED TO [address] [place] [address] 510. PT WAS A [facility]ER FROM [facility]. ADMITTED FOR BLE PAIN. PT ALERT AND ORIENTED TIMES FOUR. VSS, C/O PAIN MEDS GIVEN BEFORE TRANSFER. PT RESTING WITHUT ISSUES.
[2020-07-10 19:53] VITALS: BP 130/78
--- NOTE | 2020-07-10 23:35 | NUR ---
ASSUMED PT CARE AT AROUND 1915 HRS. PT OBSERVED SITTING IN BED. AT REST, HE RATES HIS NOHEMI KNEE PAIN AT 4/10.PT IS ON TIMED TRAMADOL.DISCOLRATION AND MILD EDEMA NOTED TO BLE. PT DENIES ANY SOA OR COUGH. HE IS VOIDING ADEQUATELY PER URINAL.USING CPAP AT [facility].DENIES ANYY CHEST PAIN OR TIGHTMNESS. TAKES MEDS OKAY. AFEBRILE.FALL EDUCATION PROVIDED-WITH PRECAUTIONS SET IN PLACE.CALL LIGHT WITHIN REACH.
[2020-07-11 06:09] LABS: HEMATOCRIT 49.6 % (42.0-52.0); HEMOGLOBIN 15.8 gm/dL (14.0-18.0); MCH 28.3 pg (26.0-34.0); MCV 88.6 fL (80.0-100.0); RBC 5.59 mil/uL (4.50-6.00); WBC 11.3 thou/uL (4.0-11.0)
[2020-07-11 06:31] LABS: CALCIUM 9.1 mg/dL (8.5-10.1); POTASSIUM 3.5 mmol/L (3.5-5.1)
[2020-07-11 08:00] VITALS: BP 138/83
--- NOTE | 2020-07-11 13:05 | NUR ---
team meeting, reccommendation: vendor form on chart, hh list and education on outpt therapy. he cont to co of pain in knees. dc 07/20 with outpt physical therapy.
--- NOTE | 2020-07-11 15:48 | NUR ---
ASSUMED CARE AT SHIFT [facility]. PT WORKED WELL WITH THERAPY TODAY, INCREASED PAIN AFTER, MEDS GIVEN PER MAR, STATES LIDDOCAINE PATCH HELPS SOME WITH R KNEE PAIN ASSESSMENS PER CHART. PT PROGRESSING TOWARDS POC GOALS.
--- NOTE | 2020-07-11 16:08 | NUR ---
I have reviewed the documentation by BARI AREVALO from 07/11/20 to 07/11/20 and I concur with it. JOSÉ HEATH, PT, DPT
[2020-07-11 19:30] VITALS: BP 114/85
--- NOTE | 2020-07-12 00:49 | NUR ---
PT ALERT AND ORIENTED X 4. C/O PAIN IN HIS KNEES. SCHEDULED TRAMADOL GIVEN AAT HS. BED ALARM ON FOR SAFETY. PT APPEARS TO BE SLEEPING ON HOURLY ROUNDS.
[2020-07-12 08:00] VITALS: BP 130/84
--- NOTE | 2020-07-12 16:02 | NUR ---
I have reviewed the documentation by BARI AREVALO from 07/12/20 to 07/12/20 and I concur with it. JOSÉ HEATH, PT, DPT
--- NOTE | 2020-07-12 18:30 | NUR ---
ASSUMED CARE OF PT AT 0700. PT IS A&OX4 AND VITAL SIGNS ARE STABLE. PT REPORTS PAIN, MANAGED WITH PO MEDICAITONS. PARTICIPATED IN THERAPIES. CALLS APPROPRIATELY. NO BLOOD IN STOOL REPORTED. FALL PRECAUITONS IN PLACE AND NURSING WILL CONTINUE TO MONITOR.
[2020-07-12 19:27] VITALS: BP 130/67
--- NOTE | 2020-07-13 04:04 | NUR ---
Patient is alert and oriented and was already in bed at the start of shift. He was compliant with meds and had no complaints or questions. Vitals were within his baseline/normal limits.
[2020-07-13 08:00] VITALS: BP 153/106
--- NOTE | 2020-07-13 13:03 | NUR ---
Nutrition: pt admitted with gout flare, bilateral knee pain/effusions, S/P left knee aspiration 07/10. PMH: HTN, gout, PNA, SOA, CHF. Extreme class 3 obesity with BMI 53.5. Weights have ranged 440-480# x several years. Pt eating 100% of meals on heart healthy diet. Education offered on heart healthy restrictions/weight loss and pt denies desire at this time. Place as low risk.
--- NOTE | 2020-07-13 13:23 | NUR ---
ASSUMED CARES AT 0700.PT AWAKE,ALERT AND ORIENTED*4. C/O PAIN IN NOHEMI KNEES,PAIN MEDICATION ADMINISTERED NEEDED. BP ELEVATED THIS AM, BP LOWERING MEDS ADMINISTERED, WILL CONTINUE TO MONITOR. ALL OTHER VITALS REMAIN STABLE. PT PARTICIPATED WELL IN ALL THERAPIES AND CONTINUES TO PROGRESS TOWARDS DC GOALS. Q1H VISUAL CHECKS. CALL LIGHT WITHIN REACH. FALL PRECAUTIONS IN PLACE.
--- NOTE | 2020-07-13 16:26 | NUR ---
I have reviewed the documentation by BARI AREVALO from 07/13/20 to 07/13/20 and I concur with it. JOSÉ HEATH, PT, DPT
[2020-07-13 19:22] VITALS: BP 100/58
--- NOTE | 2020-07-14 03:33 | NUR ---
yyyyyyyyyyyyyyyyyyyyyyyyyyyyyyyyyyyyyyyyyyyyjjj jjj jjj jjj jjj jjj jjj jjj jjj jjj jjj jjj jjj jjj jjj jjj jjj jjh [facility] Patient is alert and oriented x4, able to make needs known and jovial with staff and other patients. He did not have any major concerns and his vitals were within his baseline limits.
[2020-07-14 08:10] VITALS: BP 124/97
--- NOTE | 2020-07-14 12:46 | NUR ---
ASSUMED CARES AT 0700. PT AWAKE, ALERT AND ORIENTED*4. BP ELEVATED THIS AM, BP LOWERING MEDS ADMINISTERED ORDERED, WILL CONTINUE TO MONITOR. C/O RIGHT KNEE PAIN, LIDOCAINE PATCH APPLIED AND ORAL PAIN MEDS ADMINISTERED NEEDED. PT PARTICIPATED WELL IN ALL THERAPIES AND CONTINUES TO PROGRESS TOWARDS DC GOALS. Q1H VISUAL CHECKS. CALL LIGHT WITHIN REACH. FALL PRECAUTIONS IN PLACE
--- NOTE | 2020-07-14 16:32 | NUR ---
I have reviewed the documentation by BARI AREVALO from 07/14/20 to 07/14/20 and I concur with it. JOSÉ HEATH, PT, DPT
[2020-07-14 19:00] VITALS: BP 123/72
--- NOTE | 2020-07-15 00:03 | NUR ---
PT ALERT AND ORIENTED X 4. VOIDING PER URINAL. C/O PAIN IN HIS KNEES. SCHEDULED TRAMADOL GIVEN AT HS. PT AWAKE MUCH OF NIGHT. DID SLEEP SOME IN THE EVENING. BED ALARM ON FOR SAFETY. PT CHECKED ON HOURLY ROUNDS.
[2020-07-15 08:00] VITALS: BP 123/92
--- NOTE | 2020-07-15 13:59 | NUR ---
ASSUMED CARE AT 0700. SLEPT WELL LAST NIGHT, HAD AN UNEVENTFUL NIGHT. PAIN IS CONTROLLED AND MANAGEABLE WITH SCHEDULED TRAMADOL AND PRN OXYCODONE. PARTICIPATED WITH THERAPY TODAY. HAD A BOWEL MOVEMENT. NO OTHER CONCERNS FOR NOW. FOR PLAN DC HOME ON 07/20. CONT TO MONITOR.
[2020-07-15 19:45] VITALS: BP 123/35
[2020-07-15 22:50] VITALS: BP 96/76
--- NOTE | 2020-07-16 01:04 | NUR ---
PT ALERT AND ORIENTED X 4. CPAP ON DURING THE NIGHT. PULSE IN 40'S TONIGHT. FARHANA CARPENTER NP NOTIFIED WITH NO ORDERS RECEIVED. PT ASYMPTOMATIC. PT C/O PAIN IN HIS KNEES. SCHEDULED TRAMADOL GIVEN AT HS. BED ALARM ON FOR SAFETY. PT CHECKED ON HOURLY ROUNDS.
[2020-07-16 07:38] VITALS: BP 133/88
--- NOTE | 2020-07-16 07:50 | NUR ---
ASSUMED CARE AT 0700. PATIENT IS ALERT AND ORIENTED X4. PATIENT NEUMANN'S, DATA SCIENCE AND IOT MANAGER ARE EQUAL. LUNGS ARE CLEAR. ABD IS SOFT WITH BSX4. VOIDING ABMER COLORED URINE PER URINAL. PATIENT HAS NOHEMI L.E. EDEMA. FALL AND SAFETY PROTOCOLS IN PLACE. C/O PAIN IN HIS RIGHT KNEE. MEDICATED WITH SCED PAIN MED AND LIDOCAINE PATCH. CONTINUES TO PROGRESS SLOWLY TOWARDS D/C GOALS. WILL CONTINUE TO MONITER.
[2020-07-16 20:00] VITALS: BP 134/76
--- NOTE | 2020-07-17 02:09 | NUR ---
PT CARE ASSUMED AT 2000 WITH PT IN BED WATCHING TV.PT IS ALERT AND ORIENTED X4.PT IS UP WITH X1 ASSIST GAIT BELT AND WALKER.PT HAS SCHEDULED TRAMADOL FOR PAIN MANAGEMENT.PT USES URINAL.PT CALLS APPROPRIETELY FOR ASSISTANCE.WILL CONTINUE TO MONITOR PER POC
[2020-07-17 07:30] VITALS: BP 144/78
--- NOTE | 2020-07-17 08:43 | NUR ---
ASSUMED CARE AT 0700. PT HAD AN UNEVENTFUL NIGHT AND SLEPT WELL. REPORTED PAIN IN HIS R KNEE AND MEDICATED WITH SCHEDULED TRAMADOL. HAD A SHOWER TODAY WITH OT. APPETITE GOOD. HR IS 40-50S AND DENIES ANY SYMPTOMS OF LIGHTHEADEDNESS OR DIZZINESS. PARTICIPATING WITH THERAPY. CONT TO MONITOR. PLAN FOR DC HOME ON 07/20/2020.
--- NOTE | 2020-07-17 16:31 | NUR ---
I have reviewed the documentation by BARI AREVALO from 07/17/20 to 07/17/20 and I concur with it. JOSÉ HEATH, PT, DPT
[2020-07-17 20:00] VITALS: BP 133/92
--- NOTE | 2020-07-18 00:08 | NUR ---
PT ALERT AND ORIENTED X 4. MODIFIED INDEPENDENT IN ROOM WITH WALKER. C/O PAIN IN RIGHT KNEE. OXYCODONE GIVEN AT START OF SHIFT. SCHEDULED TRAMADOL AT HS. CPAP ON DURING THE NIGHT. PT APPEARS TO BE SLEEPING ON HOURLY ROUNDS.
[2020-07-18 05:48] LABS: HEMATOCRIT 50.1 % (42.0-52.0); HEMOGLOBIN 16.1 gm/dL (14.0-18.0); MCH 28.1 pg (26.0-34.0); MCHC 32.1 g/dL (28.0-37.0); MCV 87.5 fL (80.0-100.0); PLATELET COUNT 225 thou/uL (150-400); RBC 5.73 mil/uL (4.50-6.00); RDW 15.3 % (10.5-14.5); WBC 8.4 thou/uL (4.0-11.0)
[2020-07-18 06:08] LABS: MAGNESIUM 1.7 mg/dL (1.8-2.4); POTASSIUM 3.8 mmol/L (3.5-5.1)
[2020-07-18 08:20] VITALS: BP 148/97
[2020-07-18 08:37] LABS: ABSOLUTE NEUTROPHILS 4.5 thou/uL (1.4-8.2); ANISOCYTOSIS SLIGHT; ATYPICAL LYMPHS 1 %; POIKILOCYTOSIS SLIGHT
--- NOTE | 2020-07-18 09:34 | NUR ---
ASSUMED CARE AT 0700. PATIENT IS ALERT AND ORIENTED X4. PATIENT NEUMANN'S, THREAD PULLER ARE EQUAL. LUNGS ARE CLEAR AND DEMINISHED. ABD IS SOFT WITH BSX4. PATIENT USES URINAL TO VOID CELSO COLORED URINE. PATIENT IS MOD/I IN ROOM WITH WALKER. PATIENT HAS +2 L.E. EDEMA. ENCOURAGED PATIENT TO ELEVATE HIS FEET WHEN IN BED. FALL AND SAFETY PROTOCOLS IN PLACE. DENIES PAIN AT THIS TIME. CONTINUES TO PROGRESS TOWARDS D/C GOALS. WILL CONTNUE TO MONITER.
--- NOTE | 2020-07-18 12:26 | NUR ---
team meeting, reccomendation: cont with dc on 07/20. outpt physical therapy. mod I in room with bi fww. adding mod I up to the dinning room. possible dc on 07/19
--- NOTE | 2020-07-18 16:14 | NUR ---
I have reviewed the documentation by BARI AREVALO from 07/18/20 to 07/18/20 and I concur with it. JOSÉ HEATH, PT, DPT
[2020-07-18 20:15] VITALS: BP 143/86
--- NOTE | 2020-07-19 03:16 | NUR ---
ASSUMED CARE APPROX 1900 EVENING 07/18. PT ALERT AND ORIENTED X4, APPROPRIATE AND COOPERATIVE. PT DENIED COMPLAINTS AND STATED HE WAS LOOKING FORWARD TO BEING DISCHARGED. PT APPEARS TO BE SLEEPING SOUNDLY WITH HOURLY ROUNDING. PT MODIFIED INDEP IN ROOM TOLERATING WELL. CALL LIGHT IN REACH. WILL CONTINUE TO MONITOR.
[2020-07-19 08:00] VITALS: BP 149/82
[2020-07-19] MEDS ORDERED: ALBUTEROL2.5 MG/0.5 INH (08:44)
[2020-07-19] MEDS ORDERED: COZAAR 50 MG TA50 M1 PO (08:44)
--- NOTE | 2020-07-19 09:23 | NUR ---
ASSUMED CARE AT 0700. PATIENT IS ALERT AND ORIENTED X4. PATIENT NEUMNAN'S, MANAGER SALES TRAINING ARE EQUAL. LUNGS ARE CLEAR AND DEMINISHED. ABD IS SOFT WITH BSX4. UP IN SIDE OF BED FOR BREAKFAST. PATIENT IS MOD/I IN ROOM AND TO THE DINING ROOM. FALL AND SAFETY PROTOCOLS IN PLACE. C/O PAIN IN HIS RIGHT KNEE. MEDICATED WITH PRN AND SCED PAIN MED, AND LIDOCAIN PATCH. CONTINUES TO PROGRESS TOWARDS D/C GOALS. PLAN D/C TO HOME TODAY. WILL CONTINUE TO MONITER. WALKER FOR HOME USE HAS BEEN DELIVERED. WILL CONTINUE TO MONITER
[2020-07-19] MEDS ORDERED: LIDOPATCH1 EACH TRANSDERM (10:34)
[2020-07-19] MEDS ORDERED: PROTONIX 20 MG20 M1 PO (10:34)
[2020-07-19 10:43] VITALS: BP 149/82
--- NOTE | 2020-07-19 11:41 | NUR ---
PATIENT D/C'D TO HOME WITH SCRIPT AND ALL OF HIS BELONGINGS. PATIENT LEFT UNIT IN GOOD CONDITION PER W/C TO MEDICAL MALL /FRONT ENTRANCE. PATIENT IS UP AND MOD/I.
[2020-07-19] MEDS ORDERED: VENTOLIN HFA 1818 GM INH (15:19)
--- NOTE | 2020-07-19 15:34 | NUR ---
cm sent outpt therapy orders to [facility], provider plus delivered bariatric fww to him prior to dc.
== END 2020-07-19 11:39 | disposition home or self-care (01) | DRG 554 ==
PROVIDERS: Nurse Practitioner; ADMIT Physical Medicine & Rehabilitation; ATTEND Physical Medicine & Rehabilitation
DX: M13.0 Polyarthritis, unspecified (principal); Z68.43 Body mass index [BMI] 50.0-59.9, adult; I48.20 Chronic atrial fibrillation, unspecified; I11.0 Hypertensive heart disease with heart failure; I50.9 Heart failure, unspecified; G47.33 Obstructive sleep apnea (adult) (pediatric); E66.01 Morbid (severe) obesity due to excess calories; Z88.0 Allergy status to penicillin; I10 Essential (primary) hypertension; M25.462 Effusion, left knee; M25.461 Effusion, right knee; R53.1 Weakness
CPT/HCPCS: 10112

== ENCOUNTER 2021-11-11 23:57 | Emergency (ER) | payer OTHER ==
[~2021-11-11] VITALS: Ht 198.1 cm; Wt 186.0 kg
[~2021-11-11 23:57] MED LIST changes: +VENTOLIN HFA 1818 GM INH
[2021-11-12 00:45] LABS: ABSOLUTE NEUTROPHILS 4.4 thou/uL (1.4-8.2); EOSINOPHILS 3.3 % (0.0-3.0); HEMATOCRIT 46.3 % (42.0-52.0); HEMOGLOBIN 15.6 gm/dL (14.0-18.0); LYMPHOCYTES 28.9 % (24.0-44.0); MCH 28.7 pg (26.0-34.0); MCHC 33.7 g/dL (28.0-37.0); MCV 85.1 fL (80.0-100.0); MONOCYTES 10.4 % (1.0-8.0); PLATELET COUNT 231 thou/uL (150-400); POLYS 56.4 % (36.0-66.0); RBC 5.44 mil/uL (4.50-6.00); RDW 15.1 % (10.5-14.5); WBC 7.9 thou/uL (4.0-11.0)
[2021-11-12 00:52] LABS: CALCIUM 8.5 mg/dL (8.5-10.1); CREATININE 0.8 mg/dL (0.7-1.3); POTASSIUM 3.6 mmol/L (3.5-5.1)
[2021-11-12 02:06] VITALS: BP 149/99
--- NOTE | 2021-11-12 07:34 | EKG ---
[place] [address] [facility] [address] ELECTROCARDIOGRAM REPORT Name: CHRISTOPHER MANZANO [facility] [id number] Admission: 11/11/21 Attend Phys: Discharge: 11/12/21 Date of : 78 Report #: [id number] [facility] ED Test Date: 2021-11-12 Test Time: 00:01:05 Pat Name: CHRISTOPHER MANZANO Department: Room: Gender: M Certified Flight Instructor: JOCELYNE : 1980 Requested By: Partha Cobos Order Number: [id number] MD: Catrachito Palomino Measurements Intervals [place] Rate: 83 P: IN: QRS: -30 QRSD: 124 T: 89 QT: 357 QTc: 420 Interpretive Statements Atrial fibrillation Ventricular premature complex Left bundle branch block Compared to ECG 07/06/2020 18:57:05 Left bundle-branch block now present Intraventricular conduction delay no longer present Myocardial infarct finding no longer present Electronically Signed On 11-12-2021 7:34:31 TANK REFINISHER by Catrachito Palomino [email or web address] <ELECTRONICALLY SIGNED> By: Catrachito Palomino MD, [facility] 11/12/21 0734 0001 0001 Catrachito Palomino MD, [place] /EPI
== END 2021-11-12 02:10 | disposition home or self-care (01) ==
LOC: ER 23:57
PROVIDERS: Student in an Organized Health Care Education/Training Program
DX: U07.1 COVID-19 (principal); F17.210 Nicotine dependence, cigarettes, uncomplicated; M10.9 Gout, unspecified; I50.9 Heart failure, unspecified; I11.0 Hypertensive heart disease with heart failure; I48.91 Unspecified atrial fibrillation; E66.9 Obesity, unspecified; Z98.890 Other specified postprocedural states; Z88.0 Allergy status to penicillin